=== PATIENT | female | born 1960 | race Caucasian/White ===

== ENCOUNTER 2024-03-23 19:32 | Emergency (ER) | payer BC ==
[~2024-03-23] VITALS: Ht 167.6 cm; Wt 63.5 kg
[2024-03-23 20:36] VITALS: BP 134/78; TEMP 98.1; O2SAT 99
--- NOTE | 2024-03-23 20:37 | NUR ---
[facility] CAT BITE
[2024-03-23] MEDS ORDERED: SULF1TAB48 PO (20:52)
[2024-03-23] MEDS ORDERED: TDAP [DIPH/PERTUSSIS/TET] 0.5 ML VIAL IM ONE (20:59)
[2024-03-23] MEDS: TDAP [DIPH/PERTUSSIS/TET] 0.5 ML VIAL IM ONE (21:07)
--- NOTE | 2024-03-23 22:02 | NUR ---
Patient discharged to home in stable condition. Written and verbal after care instructions given. Patient verbalizes understanding of instruction.
== END 2024-03-23 22:01 | disposition home or self-care (01) ==
LOC: ER 19:39
DX: S51.832A Puncture wound without foreign body of left forearm, initial encounter (principal); Z88.0 Allergy status to penicillin; Z60.2 Problems related to living alone; W55.01XA Bitten by cat, initial encounter; Y93.89 Activity, other specified; Y92.098 Other place in other non-institutional residence as the place of occurrence of the external cause; Y99.8 Other external cause status
CPT/HCPCS: 90715